=== PATIENT | male | born 1995 | race Caucasian/White ===

== ENCOUNTER 2020-03-09 13:48 | Emergency (ER) | payer OTHER ==
[~2020-03-09] VITALS: Ht 182.9 cm; Wt 77.1 kg
[2020-03-09] MEDS ORDERED: OLANZAPINE20 MG PO (13:55)
== END 2020-03-09 15:10 | disposition home or self-care (01) ==
LOC: ED 13:48
DX: M79.672 Pain in left foot (principal); M79.671 Pain in right foot; M79.89 Other specified soft tissue disorders; F17.200 Nicotine dependence, unspecified, uncomplicated
CPT/HCPCS: 73630; 99283-25; A9270

== ENCOUNTER 2020-04-14 16:40 | Emergency (ER) | payer OTHER ==
[~2020-04-14] VITALS: Ht 182.9 cm; Wt 77.1 kg
--- OUTSIDE RECORDS SUMMARY | ~2020-04-14 | XMS | Clinical Summary ---
Demographics + + + | Address | [address] | | | [place] [address] | + + + | Home Phone | | + + + | Preferred Language | Unknown | + + + | Marital Status | Single | + + + | Voodoo Affiliation | Unknown | + + + | Race | Unknown | + + + | Ethnic Group | Unknown | + + + Author + + + | Author | [facility] | | | and Shine | + + + | Organization | [facility] | | | and [place] | + + + | Address | Unknown | + + + | Phone | Unavailable | + + + Support + + + + + | Name | Relationship | Address | Phone | + + + + + | Mony Pina | ECON | [address] | | | | | [place] [address] | | + + + + + Care Team Providers + +------+ + | Care Veneer Stapler Name | Role | Phone | + +------+ + | Medina Duncan | PCP | | + +------+ + Allergies No Known Allergies Medications + + + +---------+------+------+-------+ | Medication | Sig | Dispensed | Refills | Star | End | Statu | | | | | | t | Date | s | | | | | | Date | | | + + + +---------+------+------+-------+ | OLANZapine | Take 1 tablet by | 30 | 0 | 02/2 | | Activ | | (ZYPREXA) 20 MG | mouth nightly. | tablet | | 4/20 | | e | | tablet | | | | 20 | | | + + + +---------+------+------+-------+ Active Problems Not on file Encounters +--------+ + + + + | Date | Type | Specialty | Care Team | Description | +--------+ + + + + | 01/20/ | Emergency | Emergency Medicine | Jenae | Medication refill | | 2020 | | | Luan Daugherty MD | (Primary Dx); | | | | | | History of bipolar | | | | | | disorder | +--------+ + + + + from Last 3 Months Social History + + + +--------+------+ | Tobacco Use | Types | Packs/Day | Years | Date | | | | | Used | | + + + +--------+------+ | Current Every Day | Cigarettes | 1 | 10 | | | Smoker | | | | | + + + +--------+------+ + +---+---+---+ | Smokeless Tobacco: | | | | | Never Used | | | | + +---+---+---+ + + +---------+ + | Alcohol Use | Drinks/Week | oz/Week | Comments | + + +---------+ + | Not Currently | | | | + + +---------+ + + + + + | Alcohol Habits | Answer | Date Recorded | + + + + | How often do you have a drink containing | Never | 01/20/2020 | | alcohol? | | | + + + + | How many drinks containing alcohol do you | Not asked | | | have on a typical day when you are | | | | drinking? | | | + + + + | How often do you have six or more drinks on | Not asked | | | one occasion? | | | + + + + + + + | Sex Assigned at | Date Recorded | | | | + + + | Not on file | | + + + + + + + | Job Start Date | Occupation | Industry | + + + + | Not on file | Not on file | Not on file | + + + + + + + + | Travel History | Travel Start | Travel End | + + + + + + | No recent travel history available. | + + Last Filed Vital Signs + + + + + | Vital Sign | Reading | Time Taken | Comments | + + + + + | Blood Pressure | 135/100 | 01/20/2020 12:32 PM | | | | | PST | | + + + + + | Pulse | 111 | 01/20/2020 12:32 PM | | | | | PST | | + + + + + | Temperature | 36.8 C (98.3 F) | 01/20/2020 12:32 PM | | | | | PST | | + + + + + | Respiratory Rate | 16 | 01/20/2020 12:32 PM | | | | | PST | | + + + + + | Oxygen Saturation | 100% | 01/20/2020 12:32 PM | | | | | PST | | + + + + + | Inhaled Oxygen | - | - | | | Concentration | | | | + + + + + | Weight | 77.1 kg (170 lb) | 01/20/2020 12:32 PM | | | | | PST | | + + + + + | Height | 185.4 cm (6' 1") | 01/20/2020 12:32 PM | | | | | PST | | + + + + + | Body Mass Index | 22.43 | 01/20/2020 12:32 PM | | | | | PST | | + + + + + Plan of Treatment + + + + + | Health Maintenance | Due Date | Last Done | Comments | + + + + + | Vaccine: | | | | | Pneumococcal 19-64 | 2 | | | | (1 of 1 - PPSV23) | | | | + + + + + | Vaccine: | | | | | Dtap/Tdap/Td (1 - | 7 | | | | Tdap) | | | | + + + + + | Vaccine: Influenza | | | | | (Season Ended) | 0 | | | + + + + + Results Not on filefrom Last 3 Months Insurance + +--------+ +--------+ +---------+--------+ | Payer | Benefi | Subscriber | Effect | Phone | Address | Type | | | t Plan | ID | kirsten | | | | | | / | | Dates | | | | | | Group | | | | | | + +--------+ +--------+ +---------+--------+ | [place] MEDICA | [id number] | | [phone] | | Med[place] | | | [place] | | 020-Pr | 2 | | id | | | PLUS | | esent | | | | + +--------+ +--------+ +---------+--------+ + +--------+ +--------+ + + | Guarantor Name | Accoun | Relation to | Date | Phone | Billing Address | | | t Type | Patient | of | | | | | | | | | | + +--------+ +--------+ + + | Ranulfo Linag | Person | Self | [birth year] | [place] | | | al/Fam | | 1995 | [phone] | [place] [address] | | | edie | | | 5 (Home) | | + +--------+ +--------+ + + Advance Directives + + + + + | Type | Date Recorded | Patient | Explanation | | | | Regulatory Technician | | + + + + + | Power of | | | | | Fund Accountant | | | | + + + + + | Advance | | | | | Directive | | | | + + + + +
--- OUTSIDE RECORDS SUMMARY | ~2020-04-14 | XMS | Encounter Summary ---
Demographics + + + | Address | [address] | | | [place] [address] | + + + | Home Phone | | + + + | Preferred Language | Unknown | + + + | Marital Status | Single | + + + | Jewish Affiliation | Unknown | + + + | Race | Unknown | + + + | Ethnic Group | Unknown | + + + Author + + + | Author | [facility] | | | and Shine | + + + | Organization | [facility] | | | [...] | | | | | [place] [address] | | + + + + + Care Team Providers + +------+ + | Care Grain Unloader Machine Name | Role | Phone | + [...] + + | 01/20/ | [facility] | [facility] | Jenae, | Medication refill | | 2019 | | [facility] | Luan Daugherty MD [address] | (Primary Dx); | | | | CENTER [address] | [address] [place] | History of bipolar | | | | [place] | [place] [address] | disorder | | | | [address] | [phone] | | | | | [phone] | | | +--------+ + + + [...] 01/20/2020Refill your medication and take as direc heather Return for worsening symptoms or any other [...]
--- OUTSIDE RECORDS SUMMARY | ~2020-04-14 | XMS | Clinical Summary ---
Demographics + + + | Address | [address] | | | [place] [address] | + + + | Home Phone | | + + + | Preferred Language | Unknown | + + + | Marital Status | Single | + + + | Jewish Affiliation | Unknown | + + + | Race | Unknown | + + + | Ethnic Group | Unknown | + + + Author + + + | Author | [facility] | | | and Shine | + + + | Organization | [facility] | | | [...] | | | | | [place] [address] | | + + + + + Care Team Providers + +------+ + | Care Mri Ct Tech Name | Role | Phone | + [...] +---------+--------+ | [place] | MEDICA | [id number] | | [phone] | | Medica | [...] | | 1995 | [phone] | [place] [address] | | | edie | | | 5 (Home) | | + +--------+ +--------+ + + Advance Directives + + + + + | Type | Date Recorded | Patient | Explanation | | | | Cooperative Education Director | | + + + + + | Power of | | | | | Director Of Campus Recreation | | | | + + + + + | Advance | | | | | Directive | | | | + + + + +
--- OUTSIDE RECORDS SUMMARY | ~2020-04-14 | XMS | Encounter Summary ---
Demographics + + + | Address | [address] | | | [place] [address] | + + + | Home Phone | | + + + | Preferred Language | Unknown | + + + | Marital Status | Single | + + + | Quaker Affiliation | Unknown | + + + | Race | Unknown | + + + | Ethnic Group | Unknown | + + + Author + + + | Author | [facility] | | | and Shine | + + + | Organization | [facility] | | | [...] | | | | | [place] [address] | | + + + + + Care Team Providers + +------+ + | Care Government Sales Manager Name | Role | Phone | + [...] + + | 01/20/ | Emergency | [facility] | Jenae, | Medication refill | | 2019 | | [facility] EM[facility] | Luan Daugherty MD [address] | (Primary Dx); | | | | CENTER [address] | [address] [place] | History of bipolar | | | | [place] | [place] [address] | disorder | | | | [address] | [phone] | | | | | [phone] | | | +--------+ + + + [...]
[~2020-04-14 16:40] MED LIST: CHLORPROMAZINE200 MG PO; OLANZAPINE20 MG PO
--- OUTSIDE RECORDS SUMMARY | 2020-04-14 16:42 | XMS ---
PreManage Notification: KHUSHBU OLIVARES Security Para Machine Operator Events No recent Security Events currently on file CRITERIA MET - [facility] - [facility] - 2 Visits in 30 Days CARE PROVIDERS Name Unknown Clinic/Center 04/13/2020-Current PHONE: [phone] Kemar has no Care Guidelines for this patient. Care History Medical/Surgical 04/13/2020 [facility] - PATIENT [facility] ELIGIBLE, \T\middot;\T\nbsp; PLEASE REFER PATIENT TO [facility] FOR NON EMERGENT MEDICAL NEEDS. \T\middot;\T\nbsp; [facility] CAN SEE PATIENTS SAME DAY FOR APTS IF PATIENT CALLS FIRST THING IN THE MORNING. E.D. VISIT COUNT (12 MO.) 1 [place] Mervin 3 [facility] TOTAL 4 NOTE: Visits indicate total known visits. ED/UCC VISIT TRACKING (12 MO.) 04/14/2020 16:40 [facility] [place] TYPE: Emergency COMPLAINT: - MEDICAL CLEARANCE 04/12/2020 12:16 [facility] [place] TYPE: Emergency COMPLAINT: - HEARING VOICES 03/09/2020 13:49 [facility] [place] TYPE: Emergency COMPLAINT: - LEG SWELLING NON INJURY DIAGNOSES: - Pain in right foot - Pain in left foot - Other specified soft tissue disorders - Nicotine dependence, unspecified, uncomplicated [facility] DIAGNOSES: - hearing voices - Mental Health Problem - Encounter for issue of repeat prescription - Personal history of other mental and behavioral disorders - Medication Refill INPATIENT VISIT TRACKING (12 MO.) No inpatient visits to display in this time frame [id number]
== END 2020-04-14 19:30 | disposition left against medical advice (07) ==
LOC: ED 16:40
DX: Z53.21 Procedure and treatment not carried out due to patient leaving prior to being seen by health care provider (principal)

== ENCOUNTER 2020-04-14 20:08 | Emergency (ER) | payer OTHER ==
[~2020-04-14] VITALS: Ht 182.9 cm; Wt 77.1 kg
--- OUTSIDE RECORDS SUMMARY | ~2020-04-14 | XMS | Encounter Summary ---
Demographics + + + | Address | [address] | | | [place] [address] | + + + | Home Phone | | + + + | Preferred Language | Unknown | + + + | Marital Status | Single | + + + | Tenriism Affiliation | Unknown | + + + | Race | Unknown | + + + | Ethnic Group | Unknown | + + + Author + + + | Author | [facility] | | | and Shine | + + + | Organization | [facility] | | [...] | | | | | [place] [address] | | + + + + + Care Team Providers + +------+ + | Care Care Taker Name | Role | Phone | + +------+ + | Medina Duncan | PCP | | + +------+ + Reason for Visit + + + | Reason | Comments | + + + | Mental Health | | | Problem | | + + + | Medication Refill | | + + + Encounter Details +--------+ + + + + | Date | Type | Department | Care Team | Description | +--------+ + + + + | 01/20/ | [facility] | [facility] | Jenae, | Medication refill | | 2019 | | [facility] | Luna Daugherty MD [address] | (Primary Dx); | | | | CENTER [address] | [address] [place] | History of bipolar | | | | [place] | [place] [address] | disorder | | | | [address] | [phone] | | | | | [phone] | | | +--------+ + + + + Social History + + + +--------+------+ | [...] recent travel history available. | + + documented as of this encounter Last Filed Vital Signs + + + [...] | | + + + + + documented in this encounter Discharge Instructions Instructions Luan Emanuel MD - 01/20/2020Refill your medication and take as direc heahter Return for worsening symptoms or any other concerns documented in this encounter Medications at Time of Discharge + + + +---------+ + + | Medication | Sig | Dispensed | Refills | Start | End Date | | | | | | Date | | + + + +---------+ + + | OLANZapine | Take 1 tablet by | 30 | 0 | 01/20/20 | | | (ZYPREXA) 20 MG | mouth nightly. | tablet | | 20 | | | tablet | | | | | | + + + +---------+ + + documented as of this encounter Plan of Treatment Not on filedocumented as of this encounter Visit Diagnoses + + | Diagnosis | + + | Medication refill - Primary Issue of repeat prescriptions | + + | History of bipolar disorder Personal history of affective disorder | + + documented in this encounter Administered Medications + +--------+ +-------+------+------+ | Medication Order | MAR | Action | Dose | Rate | Site | | | Action | Date | | | | + +--------+ +-------+------+------+ | OLANZapine zydis (zyPREXA | Given | 01/20/20 | 20 mg | | | | ZYDIS) disintegrating tablet 20 | | 20 1:09 | | | | | mg 20 mg, Oral, ONCE, Mon | | PM PST | | | | | 01/20/20 at 1255, For 1 dose | | | | | | + +--------+ +-------+------+------+ +---+---+ | | | +---+---+ documented in this encounter
--- OUTSIDE RECORDS SUMMARY | ~2020-04-14 | XMS | Clinical Summary ---
Demographics + + + | Address | [address] | | | [place] [address] | + + + | Home Phone | | + + + | Preferred Language | Unknown | + + + | Marital Status | Single | + + + | Zoroastrianism Affiliation | Unknown | + + + | Race | Unknown | + + + | Ethnic Group | Unknown | + + + Author + + + | Author | [facility] | | | and Shine | + + + | Organization | [facility] | | | [...] | | | | | [place] [address] | | + + + + + Care Team Providers + +------+ + | Care Fire Extinguisher Tester Name | Role | Phone | + [...] +---------+--------+ | [place] | MEDICA | [id number] | | [phone] | | Medica | [...] | | 1995 | [phone] | [place] [address] | | | edie | | | 5 (Home) | | + +--------+ +--------+ + + Advance Directives + + + + + | Type | Date Recorded | Patient | Explanation | | | | Bobbin Cleaning Machine Operator | | + + + + + | Power of | | | | | Office Electrician | | | | + + + + + | Advance | | | | | Directive | | | | + + + + +
--- OUTSIDE RECORDS SUMMARY | ~2020-04-14 | XMS | Encounter Summary ---
Demographics + + + | Address | [address] | | | [place] [address] | + + + | Home Phone | | + + + | Preferred Language | Unknown | + + + | Marital Status | Single | + + + | Scientology Affiliation | Unknown | + + + | Race | Unknown | + + + | Ethnic Group | Unknown | + + + Author + + + | Author | [facility] | | | and Shine | + + + | Organization | [facility] | | | [...] | | | | | [place] [address] | | + + + + + Care Team Providers + +------+ + | Care Auction Clerk Name | Role | Phone | + [...] + + | 01/20/ | [facility] | Jenae, | Medication refill | | 2019 | | [facility] | Luan Daugherty MD [address] | (Primary Dx); | | | | CENTER [address] | [address] [place] | History of bipolar | | | | [place] | [place] [address] | disorder | | | | [address] | [phone] | | | | | [phone] | | | +--------+ + + + [...]
--- OUTSIDE RECORDS SUMMARY | ~2020-04-14 | XMS | Clinical Summary ---
Demographics + + + | Address | [address] | | | [place] [address] | + + + | Home Phone | | + + + | Preferred Language | Unknown | + + + | Marital Status | Single | + + + | Samaritan Affiliation | Unknown | + + + | Race | Unknown | + + + | Ethnic Group | Unknown | + + + Author + + + | Author | [facility] | | | and Shine | + + + | Organization | [facility] | | [...] | | | | | [place] [address] | | + + + + + Care Team Providers + +------+ + | Care Interactive Developer Name | Role | Phone | + [...] +---------+--------+ | [place] | MEDICA | [id number] | | [phone] | | Medica | [...] | | 1995 | [phone] | [place] [address] | | | edie | | | 5 (Home) | | + +--------+ +--------+ + + Advance Directives + + + + + | Type | Date Recorded | Patient | Explanation | | | | Contact Lens Blocker | | + + + + + | Power of | | | | | Student Services Representative | | | | + + + + + | Advance | | | | | Directive | | | | + + + + +
--- OUTSIDE RECORDS SUMMARY | 2020-04-14 20:12 | XMS ---
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 Care History Medical/Surgical 04/13/2020 [facility] - PATIENT IS A [facility] ELIGIBLE, \T\middot;\T\nbsp; PLEASE REFER PATIENT TO [facility] FOR NON EMERGENT MEDICAL NEEDS. \T\middot;\T\nbsp; [facility] CAN SEE PATIENTS SAME DAY FOR APTS IF PATIENT CALLS FIRST THING IN THE MORNING. E.D. VISIT COUNT (12 MO.) [address] [place] [address] [facility]am Jeffries 4 [facility] TOTAL 5 NOTE: Visits indicate total known visits. ED/UCC VISIT TRACKING (12 MO.) 04/14/2020 20:09 [facility] [place] TYPE: Emergency COMPLAINT: - MEDICAL CLEARANCE 04/14/2020 16:40 [facility] [place] TYPE: Emergency COMPLAINT: - MEDICAL CLEARANCE 04/12/2020 12:16 [facility] [place] TYPE: Emergency COMPLAINT: - HEARING VOICES 03/09/2020 13:49 [facility] [place] TYPE: Emergency COMPLAINT: - LEG SWELLING NON INJURY DIAGNOSES: - Pain in right foot - Pain in left foot - Other specified soft tissue disorders - Nicotine dependence, unspecified, uncomplicated [facility]20[facility]2020 [facility] DIAGNOSES: - hearing voices - Mental Health Problem - Encounter for issue of repeat prescription - Personal history of other mental and behavioral disorders - Medication Refill INPATIENT VISIT TRACKING (12 MO.) No inpatient visits to display in this time frame [id number]
== END 2020-04-14 23:02 | disposition left against medical advice (07) ==
LOC: ED 20:08
DX: Z53.21 Procedure and treatment not carried out due to patient leaving prior to being seen by health care provider (principal)

== ENCOUNTER 2020-06-09 13:57 | Emergency (ER) | payer OTHER ==
[~2020-06-09] VITALS: Ht 182.9 cm; Wt 77.1 kg
--- OUTSIDE RECORDS SUMMARY | ~2020-06-09 | XMS | Clinical Summary ---
Demographics + + + | Address | [address] | | | [place] [address] | + + + | Home Phone | | + + + | Preferred Language | Unknown | + + + | Marital Status | Single | + + + | Pentecostalism Affiliation | Unknown | + + + | Race | Unknown | + + + | Ethnic Group | Unknown | + + + Author + + + | Author | [facility] | | | and Shine | + + + | Organization | [facility] | | [...] | | | | | [place] [address] | | + + + + + Care Team Providers + +------+ + | Care Implementation Technician Name | Role | Phone | + [...] +---------+--------+ | [place] | MEDICA | [id number] | | [phone] | | Medica | [...] | Self | [birth year] | | [address] [place], | | | al/Fam | | 1994 | [phone] | [place] [address] | | | edie | | | 5 (Home) | | + +--------+ +--------+ + + Advance Directives + + + + + | Type | Date Recorded | Patient | Explanation | | | | Lead Pharmacy Technician | | + + + + + | Power of | | | | | Manager Android | | | | + + + + + | Advance | | | | | Directive | | | | + + + + +
--- OUTSIDE RECORDS SUMMARY | ~2020-06-09 | XMS | Encounter Summary ---
Demographics + + + | Address | [address] | | | [place] [address] | + + + | Home Phone | | + + + | Preferred Language | Unknown | + + + | Marital Status | Single | + + + | Yarsanism Affiliation | Unknown | + + + | Race | Unknown | + + + | Ethnic Group | Unknown | + + + Author + + + | Author | [facility] | | | and Shine | + + + | Organization | [facility] | | | and [...] | | | | | [place] [address] | | + + + + + Care Team Providers + +------+ + | Care Outside Sales Manager Name | Role | Phone [...] + + | 01/20/ | [facility] | Jenae, | Medication refill | | 2019 | | [facility] | Luan Daugherty MD [address] | (Primary Dx); | | | | CENTER [address] | [address] [place] | History of bipolar | | | | [place] | [place] [address] | disorder | | | | [address] | [phone] | | | | | [phone] | | | +--------+ + + + [...] might be differe nt from the original. [facility] Ranulfo Liang Emergency Department Encounter Note [address] [place] [id number] PCP:YOLETTE Weldon [phone] Room: [address] Ranulfo Liang is a 24 y.o. [...] YOLETTE Weldon. Specialty: Nurse Practitioner Contact information: [address] [place] [address] Current Discharge Medication List Portions of this chart were created with OggiFinogi voice recognition software. Inadvertent so und alike [...]
--- OUTSIDE RECORDS SUMMARY | 2020-06-09 14:00 | XMS ---
PreManage Notification: KHUSHBU OLIVARES Security Rn Delivery Events 1 event(s) in the past 18 months Most recent security events: Elopement at [facility] 04/14/2020 16:40 - Other Details: PATIENT LWBS. CRITERIA MET - 6 ED Visits in 6 Months - PDMP CARE PROVIDERS Name Unknown Clinic/Center 04/13/2020-Current PHONE: [phone] Kemar has no Care Guidelines for this patient. Care History Medical/Surgical 04/28/2020 [facility] - PATIENT IS CURRENTLY WORKING WITH [employer]- HAS AN APT ON 04/28/2020 @ 1:00. 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 - PATIENT IS PROVIDED RIDES TO AND FROM APTS AND HAS BEEN ENCOURAGED TO WORK WITH [facility] A\T\amp;D SERVICES. - NEXT APT WITH PSYCHIATRIST DR WARD 04/30/2020. 04/13/2020 [facility] - PATIENT IS A [facility] ELIGIBLE, \T\middot;\T\nbsp; PLEASE REFER PATIENT TO [facility] FOR NON EMERGENT MEDICAL NEEDS. \T\middot;\T\nbsp; [facility] CAN SEE PATIENTS SAME DAY FOR APTS IF PATIENT CALLS FIRST THING IN THE MORNING. E.D. VISIT COUNT (12 MO.) 1 [facility] 7 [facility] Pelletier TOTAL 8 NOTE: Visits indicate total known visits. ED/UCC VISIT TRACKING (12 MO.) 06/09/2020 13:57 [facility] [place] TYPE: Emergency COMPLAINT: - MEDICAL CLEARANCE 04/24/2020 20:06 [facility] [place] TYPE: Emergency COMPLAINT: - CHEST PAIN DIAGNOSES: - Nicotine dependence, unspecified, uncomplicated - Other chest pain - Chest pain, unspecified - Other intermission coordinator (current) drug therapy 04/15/2020 11:15 [facility] [place] TYPE: Emergency COMPLAINT: - MEDICAL CLEARANCE DIAGNOSES: - Restlessness and agitation - Nicotine dependence, unspecified, uncomplicated - Other intermission coordinator (current) drug therapy - Delusional disorders 04/14/2020 20:09 [facility] [address] [facility] [place] TYPE: Emergency COMPLAINT: - MEDICAL CLEARANCE DIAGNOSES: - Procedure and treatment not carried out due to patient leavin 04/14/2020 16:40 [facility] [address] [place] TYPE: Emergency COMPLAINT: - MEDICAL CLEARANCE DIAGNOSES: - Procedure and treatment not carried out due to patient leavin 04/12/2020 12:16 [facility] Damon TYPE: Emergency COMPLAINT: - HEARING VOICES DIAGNOSES: - Schizophrenia, unspecified - Nicotine dependence, unspecified, uncomplicated - Bipolar disorder, unspecified 03/09/2020 13:49 [facility] [place] TYPE: Emergency COMPLAINT: - LEG SWELLING NON INJURY DIAGNOSES: - Pain in right foot - Pain in left foot - Other specified soft tissue disorders - Nicotine dependence, unspecified, uncomplicated [facility]/20/2020 [facility] DIAGNOSES: - hearing voices - Mental Health Problem - Encounter for issue of repeat prescription - Personal history of other mental and behavioral disorders - Medication Refill INPATIENT VISIT TRACKING (12 MO.) No inpatient visits to display in this time frame [id number]
[2020-06-09] MEDS ORDERED: INVEGA6 MG PO (15:59)
== END 2020-06-09 19:41 ==
LOC: ED 13:57
DX: F25.9 Schizoaffective disorder, unspecified (principal); F31.9 Bipolar disorder, unspecified; Z79.899 Other long term (current) drug therapy
CPT/HCPCS: 80053; 80176; 81001; 84443; 85025; 99284; G0480

== ENCOUNTER 2020-06-29 00:10 | Emergency (ER) | payer OTHER ==
[~2020-06-29] VITALS: Ht 182.9 cm; Wt 77.1 kg
--- OUTSIDE RECORDS SUMMARY | ~2020-06-29 | XMS | Clinical Summary ---
Demographics + + + | Address | [address] | | | [place] [address] | + + + | Home Phone | | + + + | Preferred Language | Unknown | + + + | Marital Status | Single | + + + | Buddhism Affiliation | Unknown | + + + | Race | Unknown | + + + | Ethnic Group | Unknown | + + + Author + + + | Author | [facility] | | | and Shine | + + + | Organization | [facility] | | | and [...] | | | | | [place] [address] | | + + + + + Care Team Providers + +------+ + | Care Paraprofessional Education Assistant Name | Role | Phone | + [...] + +---------+------+------+-------+ Active Problems Not on file Social History + + + +--------+------+ | [...] on file | | + + + Last Filed Vital Signs + [...] + + Plan of Treatment + + +-------+ + | Health Maintenance | Due Date | Last | Comments | | | | Done | | + + +-------+ + | Hepatitis C | | | | | Screening | 6 | | | + + +-------+ + | Med Mgmt: HBA1C | | | | | | 6 | | | + + +-------+ + | Med Mgmt: HCT | | | | | | 6 | | | + + +-------+ + | Med Mgmt: HDL | | | | | | 6 | | | + + +-------+ + | Med Mgmt: HGB | | | | | | 6 | | | + + +-------+ + | Med Mgmt: LDL | | | | | | 6 | | | + + +-------+ + | Med Mgmt: PLT | | | | | | 6 | | | + + +-------+ + | Med Mgmt: RBC | | | | | | 6 | | | + + +-------+ + | Med Mgmt: Total | | | | | Cholesterol | 6 | | | + + +-------+ + | Med Mgmt: | | | | | Triglycerides | 6 | | | + + +-------+ + | Med Mgmt: WBC | | | | | | 6 | | | + + +-------+ + | Medication | | | | | Management | 6 | | | + + +-------+ + | Vaccine: | | | | | Pneumococcal 19-64 | 2 | | | | (1 of 1 - PPSV23) | | | | + + +-------+ + | Vaccine: | | | | | Dtap/Tdap/Td (1 - | 5 | | | | Tdap) | | | | + + +-------+ + | Vaccine: Influenza | | | | | (#1) | 0 | | | + + +-------+ + Results Not on filefrom Last 3 [...] +---------+--------+ | MEDICAID [place] | MEDICA | [id number] | | [phone] | | Medica | [...] + +--------+ +--------+ + + | Ranulfo Liang | Person | Self | [birth year] | [address] [place], | | | [place] | | 1994 | [phone] | [place] [address] | | | edie | | | 5 (Home) | | + +--------+ +--------+ + + Advance Directives + + + + + | Type | Date Recorded | Patient | Explanation | | | | Braider Operator | | + + + + + | Power of | | | | | Manager Client Service | | | | + + + + + | Advance | | | | | Directive | | | | + + + + +
--- OUTSIDE RECORDS SUMMARY | ~2020-06-29 | XMS | Encounter Summary ---
Demographics + + + | Address | [address] | | | [place] [address] | + + + | Home Phone | | + + + | Preferred Language | Unknown | + + + | Marital Status | Single | + + + | Yazidism Affiliation | Unknown | + + + | Race | Unknown | + + + | Ethnic Group | Unknown | + + + Author + + + | Author | [facility] | | | and Shine | + + + | Organization | [facility] | | | and [...] | | | | | [place] [address] | | + + + + + Care Team Providers + +------+ + | Care Contract Manager Name | Role | Phone | [...] + + | 01/20/ | [facility] | Jenae, | Medication refill | | 2019 | | [facility] | Luan Daugherty MD [address] | (Primary Dx); | | | | CENTER [address] | [address] [place] | History of bipolar | | | | [place] | [place] [address] | disorder | | | | [address] | [phone] | | | | | [phone] | | | +--------+ + + + [...] might be differe nt from the original. [facility] Ranulfo Liang Emergency Department Encounter Note [address] [place] [id number] PCP:YOLETTE Weldon [phone] Room: [address] Ranulfo Liang is a 24 y.o. male [...] YOLETTE Weldon. Specialty: Nurse Practitioner Contact information: [address] [place] [address] Current Discharge Medication List Portions of this chart were created with Shidonni voice recognition software. Inadvertent so und alike substitutions may be present and are unintentional Luan Emanuel MD 01/20/20 1254 ored, Britnty Thomas RN - 01/20/2020 12:32 PM PSTPatient [...]
[~2020-06-29 00:10] MED LIST changes: +INVEGA6 MG PO
[2020-06-29] MEDS ORDERED: PROPRANOLOL HCL20 MG PO (00:39)
== END 2020-06-29 02:12 | disposition home or self-care (01) ==
LOC: ED 00:10
DX: Z00.8 Encounter for other general examination (principal); F20.9 Schizophrenia, unspecified; F31.9 Bipolar disorder, unspecified; F17.200 Nicotine dependence, unspecified, uncomplicated; Z79.899 Other long term (current) drug therapy
CPT/HCPCS: 80053; 80176; 81001; 84443; 85025; 99283; G0480

== ENCOUNTER 2020-09-03 20:58 | Emergency (ER) | payer OTHER ==
[~2020-09-03] VITALS: Ht 182.9 cm; Wt 77.1 kg
--- OUTSIDE RECORDS SUMMARY | ~2020-09-03 | XMS | Clinical Summary ---
Demographics + + + | Address | [address] | | | [place] [address] | + + + | Home Phone | | + + + | Preferred Language | Unknown | + + + | Marital Status | Single | + + + | Confucianism Affiliation | Unknown | + + + | Race | or | + + + | Ethnic Group | Not or | + + + Author + + + | Author | [facility] | | | and [place] | + + + | Organization | [facility] | | | and [place] | + + + | Address | Unknown | + + + | Phone | Unavailable | + + + Support + + + + + | Name | Relationship | Address | Phone | + + + + + | Mony Pina | ECON | [address] | | | | | [place] [address] | | + + + + + Care Team Providers + +------+ + | Care Rubber Goods Supervisor Name | Role | Phone | + [...] +---------+--------+ | MEDICAID [place] | MEDICA | [id number] | | [phone] | | Medica | [...] | | [place] | | | riya/[place] | | 1994 | [phone] | [place] [address] | | | edie | | | 5 (Home) | | + +--------+ +--------+ + + Advance Directives + + + + + | Type | Date Recorded | Patient | Explanation | | | | Acid Conditioning Worker | | + + + + + | Power of | | | | | Television Antenna Installer | | | | + + + + + | Advance | | | | | Directive | | | | + + + + +
--- OUTSIDE RECORDS SUMMARY | ~2020-09-03 | XMS | Encounter Summary ---
Demographics + + + | Address | [address] | | | [place] [address] | + + + | Home Phone | | + + + | Preferred Language | Unknown | + + + | Marital Status | Single | + + + | Cheondoism Affiliation | Unknown | + + + [...] | | | | | [place] [address] | | + + + + + Care Team Providers + +------+ + | Care Supervisor Dog License Officer Name | Role | Phone | + [...] + + | 01/20/ | Emergency | [facility] | Jenae, | Medication refill | | 2020 | | [facility] | Luan Daugherty MD [address] | (Primary Dx); | | | | CENTER [address] | [address] [facility] | History of bipolar | | | | [place] | [place] [address] | disorder | | | | [address] | [phone] | | | | | [phone] | | | +--------+ + + + [...] on file | | + + + documented as of this encounter [...] + + documented as of this encounter ED Notes Luan Emanuel MD - 01/20/2020 12:52 PM PSTFormatting of this note might be differe nt from the original. [facility] Ranulfo Liang Emergency Department Encounter Note [address] [place] [id number] PCP:[facility]E Weldon x2500 [facility]fo [facility] is a 24 y.o. male who presents with a chief complaint of needing medic ations. Patient has a history of schizophrenia and bipolar disorder. He is here with his m other but left his prescription for Zyprexa with grandmother. They were unable to obtain it and he has been off the medications for 2 days. He notes he's been hearing voices and talk ing to himself a lot more often and is generally less functional. He has no suicidal or dimas icidal ideation. He has not been violent. He is here with his mother and they came to see if he could get a prescription for his Zyprexa. PAST MEDICAL & SURGICAL HISTORY The patient has a past medical history of Bipolar disorder (HCC) and Schizophrenia (HCC). T he patient has no past surgical history on file. CURRENT MEDICATIONS No current outpatient medications on file prior to encounter. ALLERGIES No Known Allergies FAMILY AND SOCIAL HISTORY The patient's family history is not on file. The patient reports that he has been smoking c igarettes. He has a 10.00 pack-year smoking history. He has never used smokeless tobacco. He reports previous alcohol use. He reports current drug use. Frequency: 7.00 times per week. Drug: Marijuana. REVIEW OF SYSTEMS As in history of present illness. PHYSICAL EXAM VITAL SIGNS: (first vital signs):Temp: 36.8 C (98.3 F) Pulse: 111 Resp: 16 SpO2: 100 % BP: (!) 135/100 Constitutional: No acute distress Neurologic: Alert & oriented. Gait and speech are normal. Psychiatric: Speech is slightly pressured, but the patient is cooperative, smiling, and no ncombative. Pulmonary: Good bilateral breath sounds without wheezing or rales Cardiac: Normal S1-S2 ED COURSE & MEDICAL DECISION MAKING Pertinent Labs & Imaging studies reviewed. X-rays were interpreted by myself. Medications and Allergy list as well as nursing notes and prior records were reviewed. Patient was given a dose of Zyprexa here along with a refill of his prescription. I do not think he needs other acute psychiatric intervention at this time. They understand that if symptoms worsen he can return here for further care. Follow up information and return precautions were discussed in detail at the bedside prior to discharge and all questions were answered. FINAL IMPRESSION ICD-10-CM ICD-9-CM 1. Medication refill Z76.0 V68.1 2. History of bipolar disorder Z86.59 V11.1 Follow-up Information YOLETTE Weldon. Specialty: Nurse Practitioner Contact information: [address] [place] [address] Current Discharge Medication List Portions of this chart were created with Synapp[employer] voice recognition software. Inadvertent so und alike substitutions may be present and are unintentional Luan Emanuel MD 01/20/20 1254 ored, Brittny Thomas RN - 01/20/2020 12:32 PM PSTPatient arrives in the ED with his mother with report that he h as not been able to take his Zyprexa for the past two days because he left his prescription at his grandmother's and they have been unable to get in touch with her. Patient reports sin ce he has been unable to take his medications he has been "talking to myself too much" and " hearing voices". Patient denies suicidal or homicidal ideation. documented in this encounter Plan of Treatment Not on [...]
[~2020-09-03 20:58] MED LIST changes: +PROPRANOLOL HCL20 MG PO
--- OUTSIDE RECORDS SUMMARY | 2020-09-03 21:04 | XMS ---
PreManage Notification: KHUSHBU OLIVARES Security Extract Operator Events 1 event(s) in the past 18 months Most recent security events: Elopement at [facility] 04/14/2020 16:40 - Other Details: PATIENT LWBS. CRITERIA MET - 6 ED Visits in 6 Months - PDMP CARE PROVIDERS Name Unknown Clinic/Center 04/13/2020-Current PHONE: [phone] Kemar has no Care Guidelines for this patient. Care History Medical/Surgical 04/28/2020 [facility] - PATIENT IS CURRENTLY WORKING WITH [employer]- HAS AN APT ON 04/28/2020 @ 1:00. 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 - PATIENT IS PROVIDED RIDES TO AND FROM [facility] AND HAS BEEN ENCOURAGED TO WORK WITH [facility] A[facility]D [facility]. - NEXT APT WITH PSYCHIATRIST DR WARD 04/30/2020. 04/13/2020 [facility] - PATIENT IS A [facility] ELIGIBLE, \T\middot;\T\nbsp; PLEASE REFER PATIENT TO [facility] FOR NON EMERGENT MEDICAL NEEDS. \T\middot;\T\nbsp; [facility] CAN SEE PATIENTS SAME DAY FOR [facility] IF PATIENT CALLS FIRST THING IN THE MORNING. E.D. VISIT COUNT (12 MO.) 1 [facility] 9 MACK Rodríguez HiramDarya TOTAL 10 NOTE: Visits indicate total known visits. ED/UCC VISIT TRACKING (12 MO.) 09/03/2020 21:01 [facility] [place] TYPE: Emergency COMPLAINT: - HEARING VOICES 06/29/2020 00:10 [facility] [place] TYPE: Emergency COMPLAINT: - MED CLEARANCE DIAGNOSES: - Bipolar disorder, unspecified - Other mcfp (current) drug therapy - Schizophrenia, unspecified - Encounter for other general examination - Nicotine dependence, unspecified, uncomplicated 06/09/2020 13:57 [facility] [place] TYPE: Emergency COMPLAINT: - MEDICAL CLEARANCE DIAGNOSES: - Other mcfp (current) drug therapy - Bipolar disorder, unspecified - Schizoaffective disorder, unspecified - Restlessness and agitation 04/24/2020 20:06 [facility] [place] TYPE: Emergency COMPLAINT: - CHEST PAIN DIAGNOSES: - Nicotine dependence, unspecified, uncomplicated - Other chest pain - Chest pain, unspecified - Other termite exterminator helper (current) drug therapy 04/15/2020 11:15 [facility] [place] TYPE: Emergency COMPLAINT: - MEDICAL CLEARANCE DIAGNOSES: - Restlessness and agitation - Nicotine dependence, unspecified, uncomplicated - Other termite exterminator helper (current) drug therapy - Contact with and (suspected) exposure to other viral communic - Delusional disorders 04/14/2020 20:09 [facility] [place] TYPE: Emergency COMPLAINT: - MEDICAL CLEARANCE DIAGNOSES: - Procedure and treatment not carried out due to patient leavin 04/14/2020 16:40 [facility] [place] TYPE: Emergency COMPLAINT: - MEDICAL CLEARANCE DIAGNOSES: - Procedure and treatment not carried out due to patient leavin 04/12/2020 12:16 [facility] [place] TYPE: Emergency COMPLAINT: - HEARING VOICES DIAGNOSES: - Schizophrenia, unspecified - Nicotine dependence, unspecified, uncomplicated - Bipolar disorder, unspecified 03/09/2020 13:49 [facility] [place] TYPE: Emergency COMPLAINT: - LEG SWELLING NON INJURY DIAGNOSES: - Pain in right foot - Pain in left foot - Other specified soft tissue disorders - Nicotine dependence, unspecified, uncomplicated [facility] DIAGNOSES: - hearing voices - Mental Health Problem - Encounter for issue of repeat prescription - Personal history of other mental and behavioral disorders - Medication Refill INPATIENT VISIT TRACKING (12 MO.) No inpatient visits to display in this time frame [email or web address]
[2020-09-03] MEDS ORDERED: CHLORPROMAZINE100 MG PO (21:37)
[2020-09-03] MEDS ORDERED: CLONAZEPAM0.5 MG PO (21:37)
[2020-09-03] MEDS ORDERED: SAPHRIS10 MG SL (21:37)
[2020-09-03] MEDS ORDERED: INVEGA SUS234 MG/1.5 IM (21:38)
[2020-09-03] MEDS ORDERED: ARIPIPRAZOLE5 MG PO (21:38)
[2020-09-03] MEDS ORDERED: PALIPERIDONE ER6 MG PO (21:38)
== END 2020-09-03 23:32 | disposition home or self-care (01) ==
LOC: ED 20:58
DX: F20.9 Schizophrenia, unspecified (principal); F31.9 Bipolar disorder, unspecified; F17.200 Nicotine dependence, unspecified, uncomplicated; Z79.899 Other long term (current) drug therapy
CPT/HCPCS: 80053; 80176; 81001; 84443; 85025; 99284; G0480

== ENCOUNTER 2022-03-03 12:36 | Observation (INO) | payer OTHER ==
[~2022-03-03] VITALS: Ht 182.9 cm; Wt 67.8 kg
--- NOTE | ~2022-03-03 | OR ---
[facility] [address] [place], [place] [address] Draft DATE OF OPERATION: 03/04/2022 SURGEON: Bhargav Archer MD PREOPERATIVE DIAGNOSES: 1. Acute calculous cholecystitis. 2. Schizophrenia. POSTOPERATIVE DIAGNOSES: 1. Acute calculous cholecystitis. 2. Schizophrenia. PROCEDURES: 1. Laparoscopic cholecystectomy with intraoperative cholangiogram. 2. Surgeon-directed fluoroscopy. ANESTHESIA: General endotracheal; Lai Watkins CRNA and local 20 mL of 0.25% Marcaine with epinephrine. INDICATION: This 26-year-old [place] man recently been incarcerated in [place] and was sent by bus from [place] and directly admitted to the emergency room at [facility] with complaints of right upper abdominal pain. He was clearly found to have acute cholecystitis. A CT scan and also ultrasound were performed under the direction of Dr. Bhargav Suarez confirming acute calculous cholecystitis with a single gallstone wedged in the infundibulum. The liver enzymes are normal. He has no evidence chemically of pancreatitis. He was fluid resuscitated, given intravenous antibiotics and now to undergo cholecystectomy preferred by laparoscopic approach. The risks of bleeding, infection, bile duct injury, need for operative procedure were reviewed in detail. He understands and wished to proceed. Notably, the patient does have underlying schizophrenia, which at current time is not medically treated. FINDINGS: Indeed the gallbladder was quite markedly and severely inflamed. It was excised without complication. A single 2 cm gallstone was noted within it. Cholangiogram was normal. The liver was normal. There were no other findings of concern. PATIENT NAME: KHUSHBU OLIVARES OPERATIVE REPORT DATE OF : [birth year] REPORT #: [id number] PHYSICIAN: BHARGAV ARCHER MD PCP: [facility] REPORT IS CONFIDENTIAL AND NOT TO BE RELEASED WITHOUT AUTHORIZATION [facility] [address] [place], [place] [address] Draft PROCEDURE IN DETAIL: The patient was brought to the operating room, given a general endotracheal anesthetic. Preoperative antibiotic Ancef had been given. Sequential compression device stockings were used and heparin subcutaneously administered. The abdomen was prepared with chlorhexidine solution and draped sterilely. There was a small boil like lesion not far from the umbilicus and this was covered with a small OpSite. Infraumbilical incision was made using an open Lyndsey cannula technique. Pneumoperitoneum was achieved to a level of 14 mmHg of carbon dioxide gas. Intra-abdominal inspection showed no sign of ascites or carcinomatosis. The gallbladder was quite markedly inflamed and distended and very erythematous in appearance. Liver was normal. Three additional trocars were placed in usual configuration in the subxiphoid, right midclavicular, and right anterior axillary line. The gallbladder could not be grasped. It was so tensely inflamed and on that basis, a laparoscopic needle trocar device was used to decompress the gallbladder. Clear bile was noted. The puncture site was grasped with a laparoscopic instrument allowing for elevation of the liver cephalad. The infundibulum was grasped and retracted laterally. Using blunt and electrocautery dissection, the very edematous infundibulum of the gallbladder was dissected free identifying well the cystic artery complex and the cystic duct. Using the critical view of safety. The cystic duct was very clearly defined and a clip applied across gallbladder cystic duct junction. A transverse choledochotomy was made in the cystic duct showing egress of clear bile. Using an Lemus type cholangiocatheter intraoperative cholangiography was undertaken showing free flow of contrast in biliary tree with prompt emptying into the duodenum. There was no sign of filling defect or other abnormality. The catheter was removed and the cystic duct was triply clipped and divided. The gallbladder dissected free in a retrograde fashion using electrocautery. Cystic arterial branch was triply clipped and divided as well. Gallbladder was placed in an endobag and extracted through the infraumbilical port site without problem, opened on the back table and found to have severe inflammation of mucosa and a single oblong rounded gallstone about 2 cm in size. Irrigation was undertaken in subhepatic space with good hemostasis. The trocars removed under direct visualization showing no sign of bleeding. The infraumbilical fascial incision was reapproximated with interrupted 0 Vicryl suture. The skin was then closed with interrupted 3-0 Vicryl. Steri-Strips were applied. The patient was ultimately extubated and transferred to the recovery room in good condition and suffered no complication. Sponge, needle, and instrument counts were reported as correct x3. MD FEDERICO Tena/MODL PATIENT NAME: KHUSHBU OLIVARES OPERATIVE REPORT DATE OF : [birth year] REPORT #: [id number] PHYSICIAN: BHARGAV ARCHER MD PCP: [facility] REPORT IS CONFIDENTIAL AND NOT TO BE RELEASED WITHOUT AUTHORIZATION [address] [address] Draft /[id number] cc: [facility] Copies: [facility] ~ PATIENT NAME: KHUSHBU OLIVARES OPERATIVE REPORT DATE OF : [birth year] REPORT #: [id number] PHYSICIAN: BHARGAV ARCHER MD PCP: [facility] REPORT IS CONFIDENTIAL AND NOT TO BE RELEASED WITHOUT AUTHORIZATION
[~2022-03-03 12:36] MED LIST changes: +ARIPIPRAZOLE5 MG PO; +CHLORPROMAZINE100 MG PO; +CLONAZEPAM0.5 MG PO; +INVEGA SUS234 MG/1.5 IM; +PALIPERIDONE ER6 MG PO; +SAPHRIS10 MG SL
--- NOTE | 2022-03-03 23:10 | NUR ---
PT HAS ARRIVED TO THE FLOOR, UP TO THE BR, VOIDED WITH URINAL, VITALS DONE
--- NOTE | 2022-03-03 23:30 | NUR ---
pt BROUGHT TO ROOM. pt ABLE TO AMBULATE WITHOUT ASSISTANCE, VOIDED YELLOW URINE. VITALS RECORDED, INTAKE ASSESSMENT DONE. pt REPORTED 5/10 PAIN AND REQUESTED PAIN MEDICATIONS PRN GIVEN. PROVIDED CLEAR LIQUIDS. pt HAS GARBLED SPEECH AT TIMES, ABLE TO UNDERSTAND WHEN pt SLOWS DOWN AND REPEATS. NO FURTHER REQUESTS AT THIS TIME. CALL LIGHT WITHIN REACH.
--- NOTE | 2022-03-04 03:10 | NUR ---
IN TO GET VITALS, PT UP TO VOID, DID NOT USE THE URINAL, BACK TO [facility], PT HAS BEEN NPO STATUS
--- NOTE | 2022-03-04 03:25 | NUR ---
GOT UP TO USE THE BR WITHOUT CALLING. VOID UNMEASURED. REINFORCED USE OF CALL LIGHT. PT STATES PAIN IS TOLERABLE AT THIS TIME. STILL REFUSING TO REMOVE PANTS AND SHOES. HAVE NOT BEEN ABLE TO VIEW THESE AREAS. PT DENIES ANY SKIN ISSUES. PT AWARE THAT HE WILL HAVE TO REMOVE PANTS IN THE MORNING BEFORE SURGERY. PT ASKED FOR JELLO. REMINDED HIM OF NPO STATUS.
--- NOTE | 2022-03-04 07:25 | NUR ---
Patient very fidgety, jumpy, rambling about zippers or zits, unsure. Pain 2/10 after medications were given. SCDs at bedside.
--- NOTE | 2022-03-04 08:10 | NUR ---
Updated the patient's mom Mony about his condition.
--- NOTE | 2022-03-04 09:40 | NUR ---
patient completed his shower, now is in the bed, still with some hallucinations and ramblings, stated his heart felt weird. Listen to his heart rate apically at 69. Heart sounds regular at this time.
--- NOTE | 2022-03-04 09:49 | NUR ---
Patient was to be NPO, however he took in about 750ml of fluids this AM. Advised MD and the surgery is still planned. Surgery is to come get him in about 20 minutes. IV flushed, switched to surgical fluids.
--- NOTE | 2022-03-04 10:30 | NUR ---
ATTEMPTED TO ASSESS PATIENT, PATIENT IN OR.
--- NOTE | 2022-03-04 11:00 | NUR ---
patient off the unit, in preop
--- NOTE | 2022-03-04 11:53 | NUR ---
patient of the unit, in preop/surgery area
--- NOTE | 2022-03-04 13:14 | NUR ---
03/04/22 1314 Janelle Phillips 1307- PT ARRIVES TO PACU NONAROUSABLE TO STIMULI WITH AN OPA IN PLACE. RESP EVEN AND UNLABORED. OXYGEN SAT MID 90'S ON 6L VIA MASK.
--- NOTE | 2022-03-04 13:42 | NUR ---
patient off the unit, preop/surgical area
--- NOTE | 2022-03-04 13:54 | HP ---
[facility] [address] [facility] [place], [place] [address] Signed ADMISSION DATE: 03/03/2022 HISTORY OF PRESENT ILLNESS: This 26-year-old man presented to the emergency room, was evaluated by Dr. Bhargav Faulkner with complaints of upper gastric and upper abdominal pain. He underwent a CT scan of the abdomen, which did not clearly show an abnormality and subsequently a CT scan was performed, which showed a 1.5 cm gallstone impacted within the gallbladder neck and gallbladder wall thickening and pericholecystic fluid. On the basis of probable acute calculous cholecystitis. He is admitted for further evaluation and care. The patient has comorbidity of schizophrenia, which he says is untreated essentially. He is extremely poor historian generally speaking. He is not accompanied by any family member. The patient says he has had tonsillectomy in the past. He denies any other medical problems, though does admit to schizophrenia as previously described. The patient had onset of symptoms yesterday and although he has had nausea, vomiting, abdominal pain, he has had no fever, chills, or diarrhea. SOCIAL HISTORY: He smokes on a daily basis and uses alcohol occasionally and uses marijuana. The patient has a somewhat unclear history of "angiogram and sinus surgery in the past." It is unclear of his family situation particularly. He is very vague as to where he lives and so on. REVIEW OF SYSTEMS: He denies any shortness of breath or chest pain. His pain is primarily in the right upper abdomen. PHYSICAL EXAMINATION: GENERAL: This is a thin, tall man, who is variably communicative. With time and patience, he will respond to questions. HEENT: His mucous membranes appear to be moist. NECK: Trachea is midline. CHEST: Clear. HEART: Regular without murmur. ABDOMEN: Nondistended. He has marked tenderness in the epigastric and right subcostal area. EXTREMITIES: Show no clubbing, cyanosis, or edema. VITAL SIGNS: Most recently show a pulse of 77, blood pressure 135/84, pulse oximetry of 96%. LABORATORY STUDIES: Show white count of 17.6, hematocrit 47.1, platelets 269,000. Chem profile is normal. Electronically Signed By: BHARGAV ARCHER MD 03/04/22 1354 PATIENT NAME: KHUSHBU OLIVARES HISTORY AND PHYSICAL DATE OF : [birth year] REPORT #: [id number] PHYSICIAN: BHARGAV ARCHER MD PCP: [facility] REPORT IS CONFIDENTIAL AND NOT TO BE RELEASED WITHOUT AUTHORIZATION [facility] [address] [place], [place] [address] Signed Liver enzymes are normal. Bilirubin is 0.5. CT scan of the abdomen did describe mildly distended gallbladder and gallstone with a nonobstructive bowel loop pattern and a normal appendix. The ultrasound as previously noted showed 1.5 cm stone impacted in the gallbladder neck with borderline gallbladder wall thickening and pericholecystic fluid. ASSESSMENT: The patient has acute calculous cholecystitis. Concurrent morbidity of schizophrenia is noted and to my knowledge, he has no medication for this. He is under the care of [facility], it is noted in the hospital records. I discussed with the patient the issue at hand and recommendation of treatment to include cholecystectomy preferred by laparoscopic approach tomorrow. For tonight, IV fluids will be administrated. He can have clear liquids up to midnight for comfort. IV antibiotics and ulcer prophylaxis as well as deep venous thrombosis prophylaxis will be maintained as well. He will be made available a gallbladder manual. We will plan to do this operation tomorrow to follow up. MD FEDERICO Tena/MARCIOL /[id number] cc: Dr. Kaushik Copies: ~ Electronically Signed By: BHARGAV ARCHER MD 03/04/22 1354 PATIENT NAME: KHUSHBU OLIVARES HISTORY AND PHYSICAL DATE OF : [birth year] REPORT #: [id number] PHYSICIAN: BHARGAV ARCHER MD PCP: [facility] REPORT IS CONFIDENTIAL AND NOT TO BE RELEASED WITHOUT AUTHORIZATION
--- NOTE | 2022-03-04 14:35 | NUR ---
Patient returned from surgery, surgical steri strips x 4 locations. the umbilicus site has min-moderate sangiounous drainage. VSS
[2022-03-04] MEDS ORDERED: OXYCODON-ACETA1 EAC2 PO (14:39)
[2022-03-04] MEDS ORDERED: IBUPROFEN600 MG PO (14:39)
[2022-03-04] MEDS ORDERED: ACETAMINOPHEN500 MG PO (14:39)
--- NOTE | 2022-03-04 16:23 | NUR ---
Patient ate 100% of his regular diet meals, 360 in fluids, and has urinated since surgery. Oral pain medications was given as well and it appears he is able to take the medication without n/v. Patient IV access removed and discharge to follow. Mom is at the bedside and will be taking him home with her. Pain scipt given to the mom.
--- NOTE | 2022-03-04 18:28 | NUR ---
Patient was discharged home with mom at 1705
--- NOTE | 2022-03-08 14:03 | PATH ---
[facility] [address] [place], [place] [address] Signed SPECIMEN(S): A GALLBLADDER WITH STONE SPECIMEN SOURCE: A. GALLBLADDER WITH STONE CLINICAL HISTORY: Acute cholecystitis. FINAL PATHOLOGIC DIAGNOSIS: Gallbladder, cholecystectomy: - Acute cholecystitis with cholesterolosis. - Cholelithiasis. NAL:cml:C2NR MICROSCOPIC EXAMINATION: Histologic sections of all submitted blocks are examined by light microscopy. These findings, together with the gross examination, support the pathologic diagnosis. GROSS DESCRIPTION: The specimen, labeled " Garth, gallbladder, as per the requisition," is received in formalin and consists of a previously opened gallbladder (9.7 x 4.2 x 0.6 cm). The cystic duct margin is inked. The serosa is nunez-purple dusky and mottled. The mucosa is brown and dull with a woodard exudate and pale yellow streaking. The average thickness of 0.2 cm. Within the container, is a single yellow ovoid, bosselated gallstone (1.1 cm in greatest dimension). The cystic duct lumen is patent due to the nature of the specimen. The cystic duct margin, en face, and two treasury representative sections are submitted in (A1), KD (under the direct supervision of a pathologist) The Gross Description was prepared using a voice recognition system. The report was reviewed for accuracy; however, sound-alike word errors, addition and/or deletions may occur. If there is any question about this report, please contact Client Services. PERFORMING LABORATORY: The technical component was performed by [facility], [address] [place] [address] (CLIA# [id number]). [facility], [address] [address] (CLIA# PATIENT NAME: KHUSHBU OLIVARES PATHOLOGY DATE OF : [birth year] REPORT #: [id number] PHYSICIAN: [facility] PCP: [facility] REPORT IS CONFIDENTIAL AND NOT TO BE RELEASED WITHOUT AUTHORIZATION [address] [place], [place] [address] Signed [id number]). Diagnostician: Jaqui Dickerson MD Pathologist Electronically Signed 03/08/2022 Copies: ~ PATIENT NAME: KHUSHBU OLIVARES PATHOLOGY DATE OF : [birth year] REPORT #: [id number] PHYSICIAN: [facility] PCP: [facility] REPORT IS CONFIDENTIAL AND NOT TO BE RELEASED WITHOUT AUTHORIZATION
== END 2022-03-04 17:05 | disposition home or self-care (01) ==
LOC: ED 12:36 → MS 12:38
PROVIDERS: ADMIT Surgery; ATTEND Surgery
PROC: BF13YZZ Fluoroscopy of Gallbladder and Bile Ducts using Other Contrast (ICD-10-PCS; 2022-03-04)
PROC: 0FT44ZZ Resection of Gallbladder, Percutaneous Endoscopic Approach (ICD-10-PCS; principal; 2022-03-04 11:15)
DX: K80.00 Calculus of gallbladder with acute cholecystitis without obstruction (principal); F20.9 Schizophrenia, unspecified; Z20.822 Contact with and (suspected) exposure to COVID-19; F17.210 Nicotine dependence, cigarettes, uncomplicated
CPT/HCPCS: 00790; 36415; 74177; 74300; 76705; 80053; 81001; 83690; 85007; 85025; 85060; 96372; 96375; 96376; 99285-25; C9803; G0378; J0131; J0330; J0690; J1100; J1170; J1644; J1885; J2405; J2704; J3010; J7030; J7121; Q9967; U0003